=== PATIENT | male | born 1970 | race Caucasian/White ===

== ENCOUNTER 2023-11-06 06:19 | Outpatient (CLI) | payer BC, SELFPAY ==
--- OUTSIDE RECORDS SUMMARY | 2023-11-09 01:45 | XMS_ITS | Encounter Summary ---
Author Organization [facility] Address [address] [place] [address] Care Team Providers Care Radiation Control Specialist Name Role Phone [place] Barlwo Primary Care Provider Estrellita abbasi Clinic, Annamarie [...] COVID-19? No / Unsure 04/07/2021 11:23 AM PRODUCTION UNDERWRITER documented as of this encounter Plan of Treatment Not on file documented as of this encounter Visit Diagnoses Not on filedocumented in this encounter Care Teams Radiation Control Specialist Relationship Specialty Start Date End Date Maxine Barlow PCP - General Family Practice 05/12/14 07/10/22 [facility], Annamarie Goodman [address] [place] [address] PCP - General 07/11/22 documented as of this encounter
--- OUTSIDE RECORDS SUMMARY | 2023-11-09 01:45 | XMS_ITS | Referral Summary ---
Author Organization [facility] Address [address] [place] [address] Care Team Providers Care Stove Installer Name Role Phone Clinic, Annamarie Goodman Primary [...] 185.4 cm (6' 1) 04/07/2021 11:28 AM LAST MARKER Body Mass Index 26.85 04/07/2021 11:28 AM LAST MARKER Plan of Treatment Not on file Procedures Procedure Name Priority Date/Time Associated Diagnosis Comments COMPREHENSIVE METABOLIC PANEL STAT 04/07/2021 1:31 PM LAST MARKER from Last 3 Months or Most Recently Relevant to Health Maintenance Results * Comprehensive metabolic panel (04/07/2021 1:31 PM [facility]) Sodium 138 133 - 144 mmol/L 04/07/2021 2:[address] [facility] Potassium 3.8 3.4 - 5.3 mmol/L 04/07/2021 2:[address] [facility] Chloride 106 94 - 109 mmol/L 04/07/2021 2:[address] [facility] Carbon Dioxide (CO2) 26 20 - 32 mmol/L 04/07/2021 2:[address] [facility] Anion Gap 6 3 - 14 mmol/L 04/07/2021 2:[address] [facility] Urea Nitrogen 13 7 - 30 mg/dL 04/07/2021 2:[address] [facility] Creatinine 0.80 0.66 - 1.25 mg/dL 04/07/2021 2:[address] [facility] Calcium 9.4 8.5 - 10.1 mg/dL 04/07/2021 2:[address] [facility] Glucose 97 70 - 99 mg/dL 04/07/2021 2:[address] [facility] Alkaline Phosphatase 85 40 - 150 U/L 04/07/2021 2:[address] [facility] AST 22 0 - 45 U/L 04/07/2021 2:[address] [facility] ALT 31 0 - 70 U/L 04/07/2021 2:[address] [facility] Protein Total 7.8 6.8 - 8.8 g/dL 04/07/2021 2:[address] [facility] Albumin 4.3 3.4 - 5.0 g/dL 04/07/2021 2:[address] [facility] Bilirubin Total 1.1 0.2 - 1.3 mg/dL 04/07/2021 2:[address] [facility] GFR Estimate >90 >60 mL/min/1.7 3m2 04/07/2021 2:[address] [facility] Comment:Effective January 122020 eGFRcr in adults is calculated using the 2020 CKD-EPI creatinine equation which includes age and gender (Maricarmen et al., NEJM, DOI: 10.1056/XTCPph9584359) Blood STRUCTURE OF RIGHT UPPER LIMB / Unknown Venipuncture / Unknown 04/07/2021 1:31 PM LAST MARKER 04/07/2021 1:40 PM LAST MARKER Eric Hernadez PA-C LAB - BLOOD ORDERABL ES [facility] Acute Care Lab [address] Lab (1st floor, no room number) [place] [address], [facility] [phone] from Last 3 Months or Most Recently Relevant to Health Maintenance Care Teams Stove Installer Relationship Specialty Start Date End Date ClinicAnnamarie [address] [place] [address] PCP - General 07/11/22
--- OUTSIDE RECORDS SUMMARY | 2023-11-09 01:45 | XMS_ITS | Clinical Summary ---
Author Organization [facility] Address [address] [place] [address] Care Team Providers Care Kennel Hand Name Role Phone Clinic, Annamarie Goodman Primary [...] 185.4 cm (6' 1) 04/07/2021 11:28 AM JUDICIAL ASSISTANT Body Mass Index 26.85 04/07/2021 11:28 AM JUDICIAL ASSISTANT Plan of Treatment Health Maintenance Due Date [...] COMPREHENSIVE METABOLIC PANEL STAT 04/07/2021 1:31 PM JUDICIAL ASSISTANT from Last 3 Months or Most Recently Relevant to Health Maintenance Results * Comprehensive metabolic panel (04/07/2021 1:31 PM JUDICIAL ASSISTANT) Sodium 138 133 - 144 mmol/L 04/07/2021 2:13 PM JUDICIAL ASSISTANT [facility] Potassium 3.8 3.4 - 5.3 mmol/L 04/07/2021 2:13 PM JUDICIAL ASSISTANT [facility] Chloride 106 94 - 109 mmol/L 04/07/2021 2:13 PM JUDICIAL ASSISTANT [facility] Carbon Dioxide (CO2) 26 20 - 32 mmol/L 04/07/2021 2:13 PM JUDICIAL ASSISTANT [facility] Anion Gap 6 3 - 14 mmol/L 04/07/2021 2:13 PM [facility] Urea Nitrogen 13 7 - 30 mg/dL 04/07/2021 2:13 PM [facility] Creatinine 0.80 0.66 - 1.25 mg/dL 04/07/2021 2:13 PM [facility] Calcium 9.4 8.5 - 10.1 mg/dL 04/07/2021 2:13 PM [facility] Glucose 97 70 - 99 mg/dL 04/07/2021 2:13 PM [facility] Alkaline Phosphatase 85 40 - 150 U/L 04/07/2021 2:13 PM [facility] AST 22 0 - 45 U/L 04/07/2021 2:13 PM [facility] ALT 31 0 - 70 U/L 04/07/2021 2:13 PM [facility] Protein Total 7.8 6.8 - 8.8 g/dL 04/07/2021 2:13 PM [facility] Albumin 4.3 3.4 - 5.0 g/dL 04/07/2021 2:13 PM [facility] Bilirubin Total 1.1 0.2 - 1.3 mg/dL 04/07/2021 2:13 PM [facility] GFR Estimate >90 >60 mL/min/1.7 3m2 04/07/2021 2:13 PM [facility] Comment:Effective January 122020 eGFRcr in adults is calculated using the 2020 CKD-EPI creatinine equation which includes age and gender (Maricarmen et al., NEJ, DOI: 10.1056/WULQvv2903578) Blood STRUCTURE OF RIGHT UPPER LIMB / Unknown Venipuncture / Unknown 04/07/2021 1:31 PM JUDICIAL ASSISTANT 04/07/2021 1:40 PM JUDICIAL ASSISTANT Eric Hernadez PA-C LAB - BLOOD ORDERABL ES LABORATORY [facility] Acute Care Lab [address] Lab (1st floor, no room number) [place] [address], [facility] [phone] from Last 3 Months or Most Recently Relevant to Health Maintenance Care Teams Kennel Hand Relationship Specialty Start Date End Date Clinic, Annamarie [place] [address] [place], [place] [id number] PCP - General 07/11/22
--- OUTSIDE RECORDS SUMMARY | 2023-11-09 01:46 | XMS_ITS | Encounter Summary ---
Author Organization [facility] Address [address] [place] [address] Care Team Providers Care Structural Steel Equipment Erector Name Role Phone Needs Pcp, Assignment Primary Care Provider +1- [phone] Encounter Details Date Type Department Care Team (Latest Contact Info) Description 02/28/1995 Orders Only Tigre Goel MD [address] [place] [address] Social History Tobacco Use Types Packs/Day Years [...] COVID19 01/04/2020 01/04/2020 01/07/2020 10:3 1 AM LICENSED INVESTMENT SALES ASSISTANT COVID19 01/04/2020 01/04/2020 01/25/2020 3:17 AM LICENSED INVESTMENT SALES ASSISTANT documented as of this encounter Care Teams Structural Steel Equipment Erector Relationship Specialty Start Date End Date Needs Pcp, [place] [address] PCP - General 01/23/23 documented as of this encounter
--- OUTSIDE RECORDS SUMMARY | 2023-11-09 01:46 | XMS_ITS | Clinical Summary ---
Author Organization [facility] Address [place], [place] [address] Care Team Providers Care Insurance Examiner Name Role Phone Annamarie Swift Primary Care [...] Comments Blood Pressure 138/70 02/17/2014 1:31 PM EDUCATIONAL PARAPROFESSIONAL Pulse 76 02/17/2014 1:14 PM EDUCATIONAL PARAPROFESSIONAL Temperature - - Respiratory Rate - - Oxygen Saturation - - Inhaled Oxygen Concentration - - Weight 90.3 kg (199 lb) 02/17/2014 1:14 PM EDUCATIONAL PARAPROFESSIONAL Height 182.2 cm (5' 11.73) 02/17/2014 1:[address] Body Mass Index 27.19 02/17/2014 1:14 PM EDUCATIONAL PARAPROFESSIONAL Plan of Treatment Health Maintenance Due Date [...] age to complete this topic Care Teams Insurance Examiner Relationship Specialty Start Date End Date Annamarie Swift PCP - General 02/17/14
--- OUTSIDE RECORDS SUMMARY | 2023-11-09 01:46 | XMS_ITS | Clinical Summary ---
Author Organization [facility] Address [address] [place] [address] Care Team Providers Care Front Desk Attendant Name Role Phone Needs Pcp, Assignment Primary Care Provider +1 [phone] Source Comments You are receiving this document as you are listed as the primary care provider,follow-up provider, or the patient has been referred to you for consultation.This is in compliance with the Medicare and[facility] EHR Incentive Program,which states Providers who transition their patient to another setting of careor provider of care or refers their patient to another provider of care shouldprovide summary care record for each transition of care or referral. [facility] Allergies No known active allergies Medications Medication [...] Influenza (Flucelvax) 11/28/2017 Influenza IIV4 (Quadrivalent) 0.5mL (62123) 03/14 TDAP (ADACEL) 06/12/2006 TDAP (BOOSTRIX) 08/20/2013 [...] this topic Medical Devices Implanted Type Area Tie Tape Machine Operator Device Identifier Shelf Expiration Date Model / Serial / Lot Kit Artiss 4ml W/[place] Set - [id number] Implanted:Qty : 1 on 06/30/2021 by Lluvia Barros MD at [facility] XENOGRAFT Right: [employer] [facility] [employer] 11/10/2022 [id number] / / [id number] Procedures Procedure Name Priority Date/Time Associated Diagnosis Comments PROSTATIC SPECIFIC ANTIGEN (DIAGNOSTIC F/U) Routine 04/26/2021 5:07 PM CDT Prostatitis, unspecified prostatitis type ENDOSCOPY, COLON, SCREENING/DIAGNOSTI C Routine 04/21/2021 11:32 AM SOLAR PROJECT COORDINATION SPECIALIST Screen for colon cancer LIPID PANEL & DIRECT LDL (IF NEEDED) Routine 04/01/2021 11:55 AM SOLAR PROJECT COORDINATION SPECIALIST Screening for cholesterol level from Last 3 Months or Most Recently Relevant to Health Maintenance Results * PSA Tumor Marker (Prostatic Specific Antigen) (04/26/2021 5:07 PM CDT) Prostatic Specific Antigen 1.2 0.0 - 4.0 ng/mL 04/26/2021 9:32 PM CDT [facility] Blood Venipuncture / Unknown 04/26/2021 5:07 PM CDT 04/26/2021 5:07 PM CDT Narrative [facility] - 04/26/2021 9:32 PM CDT The [facility] PSA Chemiluminescent immunoassay is used. Results obtained with different test methods or kits cannot be used interchangeably. Leland Bey PA-C LAB_1 [facility] [address] * Endoscopy, Colon, Screening/Diagnostic (04/21/2021 11:32 AM SOLAR PROJECT COORDINATION SPECIALIST) Anatomical Region Laterality Modality Other 04/21/2021 11:3 2 AM SOLAR PROJECT COORDINATION SPECIALIST Narrative 04/21/2021 11:32 AM SOLAR PROJECT COORDINATION SPECIALIST Patient Name: Eric Bender Procedure Date: 04/21/2021 [...] saturations were ? monitored continuously. The ? [id number] was introduced through ? the anus and [...] Procedure Code(s): ? --- Professional --- ? 53712, Colonoscopy, flexible; with ? removal of tumor(s), polyp(s), or ? other lesion(s) by snare technique ? 77569, Moderate sedation; each ? additional 15 minutes [...] (additional time may ? be reported with 03990, as ? appropriate) Diagnosis Code(s): ? --- Professional --- ? Z12.11, Encounter for screening for ? malignant neoplasm of colon ? K64.4, Residual hemorrhoidal skin ? tags ? K63.5, Polyp of colon ? K62.1, Rectal polyp ? K57.30, Diverticulosis of large ? intestine without perforation or ? abscess without bleeding CPT copyright 2020 [employer]. All rights reserved. The codes documented in this report are preliminary and upon head shipper review may be revised to meet current [...] and oxygen saturations were monitored continuously. The [id number] was introduced through the anus and advanced [...] kind referral. Procedure Code(s): --- Professional --- 83414, Colonoscopy, flexible; with removal of tumor(s), polyp(s), or other lesion(s) by snare technique 52357, Moderate sedation; each additional 15 minutes intraservice time G0500, Moderate sedation services provided by the same physician or other qualified health care consultant performing a gastrointestinal endoscopic service that sedation supports, requiring the presence of an independent trained observer to assist in the monitoring of the patient's level of consciousness and physiological status; initial 15 minutes of intra-service time; patient age 5 years or older (additional time may be reported with 43266, as appropriate) Diagnosis Code(s): --- Professional --- Z12.11, Encounter for screening for malignant neoplasm of colon K64.4, Residual hemorrhoidal skin tags K63.5, Polyp of colon K62.1, Rectal polyp K57.30, Diverticulosis of large intestine without perforation or abscess without bleeding CPT copyright 2020 [employer]. All rights reserved. The codes documented in this report are preliminary and upon head shipper review may be revised to meet current compliance requirements. Nelson Pérez MD 04/21/2021 12:26:10 PM Number of Addenda: 0 Note Initiated On: 04/21/2021 11:32 AM Endoscopy Report David Price PA-C ET GI PROCEDURE ORDE ECHO * Lipid Panel and Direct LDL(If Needed) (04/01/2021 11:55 AM SOLAR PROJECT COORDINATION SPECIALIST) Cholesterol 196 0 - 199 mg/dL 04/01/2021 4:35 PM SOLAR PROJECT COORDINATION SPECIALIST [facility] Triglyceride 65 <=149 mg/dL 04/01/2021 4:35 PM SOLAR PROJECT COORDINATION SPECIALIST [facility] HDL Cholesterol 65 >=40 mg/dL 2 4:35 PM SOLAR PROJECT COORDINATION SPECIALIST [facility] LDL, Calculated 118 <130 mg/dL 2 4:35 PM SOLAR PROJECT COORDINATION SPECIALIST [facility] Non HDL Chol, Calculated 131 <=159 mg/dL 04/01/2021 4:35 PM SOLAR PROJECT COORDINATION SPECIALIST [facility] Cholesterol/HDL Ratio 3.0 04/01/2021 4:35 PM SOLAR PROJECT COORDINATION SPECIALIST [facility] Hours Fasting 3 04/01/2021 4:35 PM SOLAR PROJECT COORDINATION SPECIALIST [facility]) Blood Venipuncture / Unknown 04/01/2021 11:55 AM SOLAR PROJECT COORDINATION SPECIALIST 04/01/2021 11:55 AM SOLAR PROJECT COORDINATION SPECIALIST Alejandrina Ly DO LAB_1 [facility] [address] [place] [address], [facility] ([facility]) [address] [place] [address], [facility] [phone] from Last 3 Months or Most Recently Relevant to Health Maintenance Care Teams Front Desk Attendant Relationship Specialty Start Date End Date Needs Pcp, [place] [address] PCP - General 01/23/23
== END 2023-11-06 06:20 | disposition home or self-care (01) ==
LOC: AMB 11-09 01:41
PROVIDERS: Visit Provider Family Medicine
DX: R42 Dizziness and giddiness (principal); R53.1 Weakness; R11.10 Vomiting, unspecified
CPT/HCPCS: A0425; A0427

== ENCOUNTER 2023-11-06 06:40 | Emergency (ER) | payer BC, SELFPAY ==
[2023-11-06] VITALS (17 sets, daily range): BP systolic 121–156; BP diastolic 80–95; PULSE 51–76; RESP 16; TEMP 36.2; O2SAT 94–99; BMI 26.4
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
[2023-11-06 07:29] LABS: Basophils Absolute Auto 0.04 K/uL (0.00-0.30); Basophils Percent Auto 0.5 % (0.0-3.0); Eosinophils Absolute Auto 0.05 K/uL (0.00-0.50); Eosinophils Percent Auto 0.6 % (0.0-7.0); Hemoglobin* 14.6 gm/dL (13.5-17.5); Immature Granulocytes Abs Auto 0.03 K/uL (0.00-0.30); Immature Granulocytes Pct Auto 0.4 %; Lymphocytes Percent Auto 14.3 % (20-44); Mean Corpuscular HGB Conc 34 gm/dL (32-36); Mean Corpuscular Hemoglobin 30 pg (26-34); Mean Corpuscular Volume 89 fL (80-100); Monocytes Percent Auto 4.5 % (0.0-11.0); Neutrophils Percent Auto 79.7 % (42.0-72.0); Platelet Count* 247 K/uL (140-440); RDW Coefficient of Variation % 11.7 % (11.5-15.5); Red Blood Count 4.84 m/uL (4.30-5.90); White Blood Count* 8.49 K/uL (4.50-11.00)
[2023-11-06] MEDS: 0.9 % SODIUM CHLORIDE 1000 ml 1,000 ML IV (07:29)
[2023-11-06 07:34] LABS: Slide Review Reflex No
--- OUTSIDE RECORDS SUMMARY | 2023-11-06 07:42 | XMS_ITS | Clinical Summary ---
Author Organization [facility] Address [address] [place] [address] Care Team Providers Care Grades 9 Through 12 Teacher Name Role Phone Clinic, [facility] Goodman Primary Care Provide r Allergies No known active allergies Medications No known medications Immunizations Name Administration Dates Next Due TDAP (Adacel,Boostrix) 06/16/2021 Social History Tobacco Use Types Packs/Day Years Used Date Smoking Tobacco: Never Alcohol Use Standard Drinks/Week Comments Not Asked 0 (1 standard drink = 0.6 oz pur e alcohol) Adolescent Education Answer Date Record ed Getting School Help Needed Not on file 11/17 Sex and Gender Information Value Date Recorded Sex Assigned at Not on file Gender Identity Not on file Sexual Orientation Not on file Last Filed Vital Signs Vital Sign Reading Time Taken Comments Blood Pressure 169/102 06/16/2021 6:50 PM CDT Pulse 65 06/16/2021 6:50 PM CDT Temperature 37.4 ??C (99.4 ??F) 06/16/2021 4:28 PM CD T Respiratory Rate 18 06/16/2021 6:50 PM CDT Oxygen Saturation 97% 06/16/2021 6:50 PM CDT Inhaled Oxygen Concentration - - Weight 92.3 kg (203 lb 7.8 oz) 06/16/2021 4:28 P M CDT Height 185.4 cm (6' 1) 04/07/2021 11:28 AM LINOLEUM LAYER Body Mass Index 26.85 04/07/2021 11:28 AM LINOLEUM LAYER Plan of Treatment Health Maintenance Due Date Last Done Comments ADVANCE CARE PLANNING 1970 ANNUAL REVIEW OF HM ORDERS 1968 CT COLONOGRAPHY 1968 FIT 1968 FLEX SIG 1968 YEARLY PREVENTIVE VISIT 1968 sDNA (Cologuard) 1968 COLONOSCOPY 1978 COLORECTAL CANCER SCREENING 1978 HIV SCREENING 05/08/1983 HEPATITIS C SCREENING 1986 HEPATITIS B IMMUNIZATION (1 of 3 - 19+ 3-dose series) 05/08/1987 LIPID 2008 ZOSTER IMMUNIZATION (1 of 2) 2018 PHQ-2 (once per calendar year) 2023 COVID-19 Vaccine (1 - 2023-2 5 season) 2023 INFLUENZA VACCINE (#1) 2023 , 12/02/2018, 11/28/2017 GLUCOSE 04/07/2024 04/07/2021, 05/12/2014 DTAP/TDAP/TD IMMUNIZATION (4 - Td or Tdap) 06/17/2031 06/16/2021, 08/20/2013, 06/12/2006 HPV IMMUNIZATION Aged Out No longer e ligible based on patient's age to complete this topic MENINGITIS IMMUNIZATION Aged Out No l onger eligible based on patient's age to complete this topic Pneumococcal Vaccine: Pediatrics (0 to 5 Years) and At-Risk Patients (6 to 64 Years) Aged Out No longer eligible b ased on patient's age to complete this topic RSV MONOCLONAL ANTIBODY Aged Out No l onger eligible based on patient's age to complete this topic Procedures Procedure Name Priority Date/Time Associated Diagnosis Comments COMPREHENSIVE METABOLIC PANEL STAT 04/07/2021 1:31 PM LINOLEUM LAYER from Last 3 Months or Most Recently Relevant to Health Maintenance Results * Comprehensive metabolic panel (04/07/2021 1:31 PM LINOLEUM LAYER) Sodium 138 133 - 144 mmol/L 04/07/2021 2:13 PM [facility]OLEUM LAYER [facility] Potassium 3.8 3.4 - 5.3 mmol/L 04/07/2021 2:13 PM [facility]OLEUM LAYER [facility] Chloride 106 94 - 109 mmol/L 04/07/2021 2:13 PM [facility]OLEUM LAYER [facility] Carbon Dioxide (CO2) 26 20 - 32 mmol/L 04/07/2021 2:13 PM [facility]OLEUM LAYER [facility] Anion Gap 6 3 - 14 mmol/L 04/07/2021 2:13 PM [facility] Urea Nitrogen 13 7 - 30 mg/dL 04/07/2021 2:13 PM [facility] Creatinine 0.80 0.66 - 1.25 mg/dL 04/07/2021 2:13 PM [facility] Calcium 9.4 8.5 - 10.1 mg/dL 04/07/2021 2:13 PM [facility] Glucose 97 70 - 99 mg/dL 04/07/2021 2:13 PM [facility] Alkaline Phosphatase 85 40 - 150 U/L 04/07/2021 2:13 PM [facility] AST 22 0 - 45 U/L 04/07/2021 2:13 PM [facility] ALT 31 0 - 70 U/L 04/07/2021 2:13 PM [facility] Protein Total 7.8 6.8 - 8.8 g/dL 04/07/2021 2:13 PM [facility] Albumin 4.3 3.4 - 5.0 g/dL 04/07/2021 2:13 PM [facility] Bilirubin Total 1.1 0.2 - 1.3 mg/dL 04/07/2021 2:13 PM [facility] GFR Estimate >90 >60 mL/min/1.7 3m2 04/07/2021 2:13 PM [facility] Comment:Effective January 122020 eGFRcr in adults is calculated using the 2020 CKD-EPI creatinine equation which includes age and gender (Maricarmen et al., NEJ, DOI: 10.1056/FTLZgy6713632) Blood STRUCTURE OF RIGHT UPPER LIMB / Unknown Venipuncture / Unknown 04/07/2021 1:31 PM LINOLEUM LAYER 04/07/2021 1:40 PM LINOLEUM LAYER Eric Hernadez PA-C LAB - BLOOD ORDERABL [facility] [address] Lab (1st floor, no room number) [place] [address], [facility] [phone] from Last 3 Months or Most Recently Relevant to Health Maintenance Care Teams Grades 9 Through 12 Teacher Relationship Specialty Start Date End Date Clinic, Annamarie Goodman [address] [place], [place] [id number] PCP - General 07/11/22
--- OUTSIDE RECORDS SUMMARY | 2023-11-06 07:43 | XMS_ITS | Clinical Summary ---
Author Organization [facility] Address [place], [place] [address] Care Team Providers Care Basketball Scout Name Role Phone Annamarie Swift Primary Care Provider Unava ilable Allergies No known active allergies Medications No known medications Active Problems No known active problems Immunizations Name Administration Dates Next Due Tdap 08/20/2013 Social History Tobacco Use Types Packs/Day Years Used Date Smoking Tobacco: Never Smokeless Tobacco: Never Alcohol Use Standard Drinks/Week Comments Not Asked 0 (1 standard drink = 0.6 oz pur e alcohol) Sex and Gender Information Value Date Recorded Sex Assigned at Not on file Gender Identity Not on file Sexual Orientation Not on file Obstetrics History Last Filed Vital Signs Vital Sign Reading Time Taken Comments Blood Pressure 138/70 02/17/2014 1:31 PM AVIONICS ELECTRONICS TECHNICIAN Pulse 76 02/17/2014 1:14 PM AVIONICS ELECTRONICS TECHNICIAN Temperature - - Respiratory Rate - - Oxygen Saturation - - Inhaled Oxygen Concentration - - Weight 90.3 kg (199 lb) 02/17/2014 1:14 PM AVIONICS ELECTRONICS TECHNICIAN Height 182.2 cm (5' 11.73) 02/17/2014 1:[address] Body Mass Index 27.19 02/17/2014 1:14 PM AVIONICS ELECTRONICS TECHNICIAN Plan of Treatment Health Maintenance Due Date Last Done Comments Depression screening for age 12+ 1980 HIV for age 15-65 05/08/1983 BMI (ht and wt on same day) for age 18+ 1986 Hepatitis C screening for ag e 18-79 1986 Colonoscopy through age 75 2013 Lipids for age 45-75 2013 Zoster (shingles) series for age 50+ (1 of 2) 2018 Tetanus booster 08/21/2023 08/20/2013 COVID-19 vaccine series (2023- season) 2023 Influenza for age 50-64 10/13/2023 Tdap Completed 08/20/2013 Pneumococcal series for age 6-64 Aged Out No longer eligible based on patient's age to complete this topic Care Teams Basketball Scout Relationship Specialty Start Date End Date Annamarie Swift PCP - General 02/17/14
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
--- OUTSIDE RECORDS SUMMARY | 2023-11-06 07:43 | XMS_ITS | Encounter Summary ---
Author Organization [facility] Address [address] [place] [address] Care Team Providers Care Apartment Leasing Specialist Name Role Phone Maxine Barlow Primary Care Provider Estrellita abbasi Clinic, Annamarie Goodman Primary Care Provide r Encounter Details Date Type Department Care Team (Late st Contact Info) Description 04/07/2021 Documentation Only INTERFACED REPORT Unknown, Provider Social History Tobacco Use Types Packs/Day Years Used Date Smoking Tobacco: Never Alcohol Use Standard Drinks/Week Comments Not Asked 0 (1 standard drink = 0.6 oz pur e alcohol) Sex and Gender Information Value Date Recorded Sex Assigned at Not on file Gender Identity Not on file Sexual Orientation Not on file COVID-19 Exposure Response Date Recorded In the last month, have you been in contact with someone who was confirmed or suspected to have Coronavirus / COVID-19? No / Unsure 04/07/2021 11:23 AM VIDEO ARCADE MANAGER documented as of this encounter Plan of Treatment Not on file documented as of this encounter Visit Diagnoses Not on filedocumented in this encounter Care Teams Apartment Leasing Specialist Relationship Specialty Start Date End Date Maxine Barlow PCP - General Family Practice 05/12/14 07/10/22 [facility], Annamarie Goodman [address] [place] [address] PCP - General 07/11/22 documented as of this encounter
--- OUTSIDE RECORDS SUMMARY | 2023-11-06 07:43 | XMS_ITS | Referral Summary ---
Author Organization [facility] Address [address] [place] [address] Care Team Providers Care Repair Order Clerk Name Role Phone Clinic, Annamarie [place] Primary [...] 185.4 cm (6' 1) 04/07/2021 11:28 AM CLINICAL BIOCHEMIST Body Mass Index 26.85 04/07/2021 11:28 AM CLINICAL BIOCHEMIST Plan of Treatment Not on file Procedures Procedure Name Priority Date/Time Associated Diagnosis Comments COMPREHENSIVE METABOLIC PANEL STAT 04/07/2021 1:31 PM CLINICAL BIOCHEMIST from Last 3 Months or Most Recently Relevant to Health Maintenance Results * Comprehensive metabolic panel (04/07/2021 1:31 PM [facility]) Sodium 138 133 - 144 mmol/L 04/07/2021 2:13 PM [facility] Potassium 3.8 3.4 - 5.3 mmol/L 04/07/2021 2:13 PM [facility] Chloride 106 94 - 109 mmol/L 04/07/2021 2:13 PM [facility] Carbon Dioxide (CO2) 26 20 - 32 mmol/L 04/07/2021 2:13 PM [facility] Anion Gap 6 3 - 14 mmol/L 04/07/2021 2:13 PM [facility] Urea Nitrogen 13 7 - 30 mg/dL 04/07/2021 2:13 PM [facility] Creatinine 0.80 0.66 - 1.25 mg/dL 04/07/2021 2:13 PM [facility] Calcium 9.4 8.5 - 10.1 mg/dL 04/07/2021 2:13 PM [facility] Glucose 97 70 - 99 mg/dL 04/07/2021 2:13 PM [facility] Alkaline Phosphatase 85 40 - 150 U/L 04/07/2021 2:13 PM [facility] AST 22 0 - 45 U/L 04/07/2021 2:13 PM [facility] ALT 31 0 - 70 U/L 04/07/2021 2:13 PM [facility] Protein Total 7.8 6.8 - 8.8 g/dL 04/07/2021 2:13 PM [facility] Albumin 4.3 3.4 - 5.0 g/dL 04/07/2021 2:13 PM [facility] Bilirubin Total 1.1 0.2 - 1.3 mg/dL 04/07/2021 2:13 PM [facility] GFR Estimate >90 >60 mL/min/1.7 3m2 04/07/2021 2:13 PM [facility] Comment:Effective January 122020 eGFRcr in adults is calculated using the 2020 CKD-EPI creatinine equation which includes age and gender (Maricarmen et al., NEJM, DOI: 10.1056/POMMoj0845163) Blood STRUCTURE OF RIGHT UPPER LIMB / Unknown Venipuncture / Unknown 04/07/2021 1:31 PM CLINICAL BIOCHEMIST 04/07/2021 1:40 PM CLINICAL BIOCHEMIST Eric Hernadez PA-C LAB - BLOOD ORDERABL ES [facility] Acute Care Lab [address] Lab (1st floor, no room number) [place] [address], [facility] [phone] from Last 3 Months or Most Recently Relevant to Health Maintenance Care Teams Repair Order Clerk Relationship Specialty Start Date End Date ClinicAnnamarie [address] [place] [address] PCP - General 07/11/22
--- OUTSIDE RECORDS SUMMARY | 2023-11-06 07:43 | XMS_ITS | Encounter Summary ---
Author Organization [facility] Address [address] [place] [address] Care Team Providers Care Office Supervisor Name Role Phone Needs Pcp, Assignment Primary Care Provider [phone]- [phone] Encounter Details Date Type Department Care Team (Latest Contact Info) Description 02/28/1995 Orders Only Tigre Goel MD [address] [place] [address] Social History Tobacco Use Types Packs/Day Years Used Date Smoking Tobacco: Never Assessed Sex and Gender Information Value Date Recorded Sex Assigned at Not on file Gender Identity Not on file Sexual Orientation Not on file documented as of this encounter Plan of Treatment Not on file documented as of this encounter Visit Diagnoses Not on filedocumented in this encounter Additional Health Concerns Infection Onset Date Last Indicated Resolved Time R/O COVID19 01/04/2020 01/04/2020 01/07/2020 10:3 1 AM MANAGER CREATIVE COVID19 01/04/2020 01/04/2020 01/25/2020 3:17 AM MANAGER CREATIVE documented as of this encounter Care Teams Office Supervisor Relationship Specialty Start Date End Date Needs Pcp, [place] [address] PCP - General 01/23/23 documented as of this encounter
[2023-11-06 07:46] LABS: Albumin* 4.6 g/dL (3.3-5.0); Chloride* 105 mmol/L (96-114); Potassium* 3.2 mmol/L (3.6-5.1); Sodium* 138 mmol/L (135-149)
[2023-11-06 07:48] LABS: Creatinine* 0.8 mg/dL (0.5-1.5); Est. Creatinine Clearance* 117.91; Estimated Glomerular Filt Rate 105 ml/min; Lipase* 59 U/L (23-300)
[2023-11-06 07:49] LABS: Alanine Aminotransferase* 26 U/L (4-50); Alkaline Phosphatase* 88 U/L (40-150); Anion Gap 11 mEq/L (7-15); Aspartate Amino Transferase* 30 U/L (12-35); Bilirubin Total* 0.8 mg/dL (0.1-1.5); Carbon Dioxide* 22 mmol/L (20-32); Ethanol* < 0.01 % (0.01-0.03); Total Protein* 7.3 g/dL (6.0-8.3)
[2023-11-06 07:50] LABS: Blood Urea Nitrogen* 22 mg/dL (7-30); Calcium* 9.2 mg/dL (8.4-10.6); Glucose* 184 mg/dL (60-115)
[2023-11-06 07:54] LABS: C Reactive Protein* < 0.5 mg/dL (0.5-1.0)
[2023-11-06 08:05] LABS: Procalcitonin* 0.05 ng/mL (<0.50)
[2023-11-06 08:10] LABS: PCR FLU A Negative PCR FLU A (Negative); PCR FLU B Negative PCR FLU B (Negative); PCR RSV Negative PCR RSV (Negative); SARS PCR* Negative SARS-CoV-2 (Negative)
[2023-11-06 08:24] LABS: Appearance Urine Clear (Clear); Bilirubin Urine Negative (Negative); Blood Urine Negative (Negative); Color Urine Yellow (Yellow); Glucose Urine Negative (Negative); Ketones Urine 1+ (Negative); Leukocyte Esterase Urine Negative (Negative); Nitrite Urine Negative (Negative); Protein Urine Negative (Negative); Urobilinogen Urine 0.2 (0.2-1.0)
[2023-11-06] MEDS: 0.9 % SODIUM CHLORIDE 1000 ml 1,000 ML 6000 ML IV (08:30)
[2023-11-06 08:37] LABS: RBC Urine 0-2 (0-2); Squamous Epithelial Cell Urine Few (None-Few); WBC Urine 0-2 (0-5)
[2023-11-06 08:38] LABS: Mucus Urine Few
[2023-11-06 09:30] LABS: Lactate Sepsis 2 Hour 1.3 mmol/L (0.5-1.9)
== END 2023-11-06 10:42 | disposition home or self-care (01) ==
PROVIDERS: Emergency Provider Family Medicine
DX: R42 Dizziness and giddiness (principal); R19.7 Diarrhea, unspecified
CPT/HCPCS: 36415; 80053; 81001; 82077; 83605; 83690; 84145; 84484; 85025; 86140; 87631; 93005; 99283; 99284; J7030